=== PATIENT | female | born 1990 | race Caucasian/White ===

== ENCOUNTER 2017-01-22 09:19 | Inpatient (IN) | payer OTHER ==
[~2017-01-22] VITALS: Ht 167.6 cm; Wt 68.0 kg
== END 2017-01-26 16:56 | disposition home or self-care (01) | DRG 781 ==
LOC: ER 09:19 → OB/GYN 10:20 → LDR 10:20 → OB/GYN 15:50
PROC: BY4CZZZ Ultrasonography of Second Trimester, Single Fetus (ICD-10-PCS; principal; 2017-01-22)
PROC: 4A1HXCZ Monitoring of Products of Conception, Cardiac Rate, External Approach (ICD-10-PCS; 2017-01-22)
DX: O26.892 Other specified pregnancy related conditions, second trimester (principal); B34.8 Other viral infections of unspecified site; Z34.82 Encounter for supervision of other normal pregnancy, second trimester

== ENCOUNTER 2017-04-08 13:00 | Inpatient (IN) | payer OTHER ==
[~2017-04-08] VITALS: Ht 167.6 cm; Wt 72.1 kg
[2017-04-17] MEDS ORDERED: PRENATAL TABLE1 EAC3 PO (15:02)
== END 2017-04-20 17:00 | DRG 775 ==
LOC: LDR 04-17 14:44 → OB/GYN 04-18 04:35
PROC: 4A1HXCZ Monitoring of Products of Conception, Cardiac Rate, External Approach (ICD-10-PCS; 2017-04-17)
PROC: 10E0XZZ Delivery of Products of Conception, External Approach (ICD-10-PCS; principal; 2017-04-18)
PROC: 0KQM0ZZ Repair Perineum Muscle, Open Approach (ICD-10-PCS; 2017-04-18)
PROC: 10907ZC Drainage of Amniotic Fluid, Therapeutic from Products of Conception, Via Natural or Artificial Opening (ICD-10-PCS; 2017-04-18)
DX: O70.1 Second degree perineal laceration during delivery (principal); Z37.0 Single live birth; Z3A.39 39 weeks gestation of pregnancy

== ENCOUNTER 2020-07-13 12:17 | Emergency (ER) | payer OTHER ==
[~2020-07-13] VITALS: Ht 167.6 cm; Wt 62.1 kg
[~2020-07-13 12:17] MED LIST: PRENATAL TABLE1 EAC3 PO
[2020-07-13] MEDS ORDERED: ZOFRAN8 MG PO (12:47)
== END 2020-07-13 18:56 | disposition home or self-care (01) ==
LOC: ER 12:17
DX: O26.891 Other specified pregnancy related conditions, first trimester (principal); R10.2 Pelvic and perineal pain; Z34.01 Encounter for supervision of normal first pregnancy, first trimester

== ENCOUNTER 2021-01-12 12:55 | Inpatient (IN) | payer OTHER ==
[~2021-01-12] VITALS: Ht 170.2 cm; Wt 76.2 kg
[~2021-01-12 12:55] MED LIST changes: +ZOFRAN8 MG PO
[2021-01-12] MEDS ORDERED: PRENATAL CAPLE1 EAC1 PO (13:26)
[2021-01-12] MEDS ORDERED: IRON325 MG PO (13:26)
== END 2021-01-14 12:36 | disposition home or self-care (01) | DRG 807 ==
LOC: OB/GYN 12:55 → LDR 12:55 → OB/GYN 17:13
PROVIDERS: ADMIT Specialist; ATTEND Specialist
PROC: 10E0XZZ Delivery of Products of Conception, External Approach (ICD-10-PCS; principal; 2021-01-12)
PROC: 0KQM0ZZ Repair Perineum Muscle, Open Approach (ICD-10-PCS; 2021-01-12)
PROC: 4A1HXFZ Monitoring of Products of Conception, Cardiac Rhythm, External Approach (ICD-10-PCS; 2021-01-12)
DX: O42.02 Full-term premature rupture of membranes, onset of labor within 24 hours of rupture (principal); O70.1 Second degree perineal laceration during delivery; O99.824 Streptococcus B carrier state complicating childbirth; Z37.0 Single live birth; Z3A.37 37 weeks gestation of pregnancy

== ENCOUNTER 2022-01-08 12:20 | Emergency (ER) | payer OTHER ==
[~2022-01-08] VITALS: Ht 167.6 cm; Wt 62.6 kg
[~2022-01-08 12:20] MED LIST changes: +IRON325 MG PO; +PRENATAL CAPLE1 EAC1 PO
[2022-01-08] MEDS ORDERED: SYNTHROID50 MCG PO (12:44)
== END 2022-01-08 15:24 | disposition home or self-care (01) ==
LOC: ER 12:20
DX: G43.909 Migraine, unspecified, not intractable, without status migrainosus (principal)

== ENCOUNTER 2022-10-04 10:15 | Emergency (ER) | payer OTHER ==
[~2022-10-04] VITALS: Ht 167.6 cm; Wt 54.4 kg
[~2022-10-04 10:15] MED LIST changes: +SYNTHROID50 MCG PO
[2022-10-04] MEDS ORDERED: PAXLOVID 300-11 EACH PO (11:53)
== END 2022-10-04 12:35 | disposition home or self-care (01) ==
LOC: ER 10:15
DX: U07.1 COVID-19 (principal)